=== PATIENT | female | born 2000 | race American Indian/Alaskan Native ===

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

== ENCOUNTER 2019-07-31 23:09 | Emergency (ER) | payer SELFPAY ==
--- NOTE | 2019-08-01 00:21 | Emergency Department Report ---
<LILLIAM PASTRANA - Last Filed: 08/01/19 00:17> ED Psych HPI - General Chief Complaint: Psych Stated Complaint: SI Time Seen by Provider: 07/31/19 23:27 Source: patient, EMS Mode of arrival: Ambulatory - History of Present Illness Initial Comments: 18 yo F presents to ED for mental health evaluation. Pt states her friend called 911 b/c she was concerned that pt was suicidal. Pt states she has been sad that this is the anniversary of her grandparents' . States she was talking to her friend over the phone and told her that she "just wanted to be with them," and then hung up the phone. EMS then arrived at her home. Patient report taking 3 percocets, 2 shots of [place], and a glass of wine. When asked if she is feeling suicidal, pt states "not really." States she wants to escape the feelings she is having. MD Complaint: feels depressed -: This evening Associated Psychiatric Symptoms: depression Improves With: none Worsens With: achohol Context: recent alcohol abuse, significant life stressor Associated Symptoms: denies other symptoms Treatments Prior to Arrival: none - Related Data Home Medications Medication Instructions Recorded Confirmed Last Taken No Known Home Medications [No 08/01/19 08/01/19 Unknown Reported Home Medications] Allergies Allergy/AdvReac Type Severity Reaction Status Date / Time latex Allergy Unknown Verified 07/31/19 23:26 Nuts Allergy Hives Uncoded 04/28/15 23:09 Seafood AdvReac Hives Uncoded 04/28/15 23:09 ED Review of Systems Comment: All other systems reviewed and negative Psychiatric: depression. denies: auditory hallucinations, visual h allucinations, homicidal thoughts ED Past Medical Hx - Past Medical History Previous Medical History?: Yes Hx Asthma: Yes - Social History Smoking Status: Never Smoker - Medications Home Medications: Home Medications Medication Instructions Recorded Confirmed Last Taken Type No Known Home Medications [No 08/01/19 08/01/19 Unknown History Reported Home Medications] ED Physical Exam - General Limitations: No Limitations General appearance: alert, in no apparent distress - Head Head exam: Present: atraumatic, normocephalic - Eye Eye exam: Present: normal appearance, EOMI - ENT ENT exam: Present: mucous membranes moist - Neck Neck exam: Present: normal inspection - Respiratory Respiratory exam: Present: normal lung sounds bilaterally. Absent: respiratory distress - Cardiovascular Cardiovascular Exam: Present: regular rate, normal rhythm - GI/Abdominal GI/Abdominal exam: Absent: distended - Extremities Exam Extremities exam: Present: normal inspection - Neurological Exam Neurological exam: Present: alert, oriented X3, CN II-XII intact. Absent: motor sensory deficit - Psychiatric Psychiatric exam: Present: depressed - Skin Skin exam: Present: warm, dry, intact, normal color ED Medical Decision Making - Differential Diagnosis depression, SI, intoxication ED Disposition Clinical Impression: Depression, Substance abuse Disposition: DC-01 TO HOME OR SELFCARE Condition: Stable Instructions: Depression (ED), Suicide Prevention for Adults (ED) Additional Instructions: Please avoid any further abuse of prescription or any illicit drugs. Do not mix prescription medications with alcohol. Please follow-up with 1 of the outpatient psychiatric referrals that you have been given. Return to the emergency department with any worsening of your symptoms, thoughts of harming your self or others, or with any acute distress. Referrals: PRIMARY CARE, [Primary Care Provider] - 3-5 Days <TRINY GURROLA - Last Filed: 08/01/19 10:31> ED Review of Systems ROS: Stated complaint: SI Other details as noted in HPI ED Course Vital Signs 07/31/19 08/01/19 08/01/19 23:33 01:00 01:09 Temperature 98.7 F Pulse Rate 91 H 65 Respiratory 20 20 20 Rate Blood Pressure 118/80 Blood Pressure 104/73 [Right] O2 Sat by Pulse 100 99 99 Oximetry 08/01/19 08/01/19 08/01/19 02:00 04:00 05:00 Temperature Pulse Rate 73 73 73 Respiratory 18 20 18 Rate Blood Pressure Blood Pressure 105/54 105/50 101/58 [Right] O2 Sat by Pulse 98 100 98 Oximetry 08/01/19 08/01/19 06:00 07:15 Temperature 97.7 F Pulse Rate 79 87 Respiratory 18 16 Rate Blood Pressure Blood Pressure 102/63 102/53 [Right] O2 Sat by Pulse 99 98 Oximetry ED Medical Decision Making - Lab Data Result diagrams: 07/31/19 23:50 07/31/19 23:50 - Medical Decision Making This patient initially came in after mixing Percocet and alcohol and making some type of a statement regarding seeing her grandparents that was taken as concern for suicidal ideations. The patient has been seen by the psychiatric assessment team and she denies any suicidal ideations. She made the statements just in terms of missing them and grieving. She used the substances to numb and the pain but not to harm herself. She will be discharged with outpatient referrals. She has been instructed to return to the emergency department with any worsening of her symptoms, thoughts of harming herself or others, or with any acute distress. Critical care attestation.: If time is entered above; I have spent that time in minutes in the direct care of this critically ill patient, excluding procedure time. ED Disposition Is pt being admited?: No Time of Disposition: 10:29
[2019-08-01 00:40] LABS: Bacteria,Urine 2+ /HPF (Negative); Bilirubin,Urine NEG (Negative); Blood,Urine NEG (Negative); Color,Urine Yellow (Yellow); Mucus,Urine FEW /HPF; Protein,Urine <15 mg/dL mg/dL (Negative); Urobilinogen,Urine < 2.0 mg/dL (<2.0)
[2019-08-01 00:43] LABS: Eosinophils # (Auto) 0.1 K/mm3 (0.0-0.4); Eosinophils % (Auto) 2.6 % (0.0-4.3); Hematocrit 36.3 % (30.3-42.9); Hemoglobin 12.4 gm/dl (10.1-14.3); Lymphocytes # (Auto) 2.3 K/mm3 (1.2-5.4); Lymphocytes % (Auto) 46.5 % (13.4-35.0); Mean Corpuscular HGB Conc 34 % (30-34); Mean Corpuscular Volume 95 fl (79-97); Monocytes # (Auto) 0.5 K/mm3 (0.0-0.8); Monocytes % (Auto) 9.3 % (0.0-7.3); Red Blood Count 3.83 M/mm3 (3.65-5.03); Red Cell Distribution Width 13.8 % (13.2-15.2)
[2019-08-01 00:46] LABS: Amphetamine Screen,Urine PRESUMPTIVE NEGATIVE; Benzodiazepines Screen,Urine PRESUMPTIVE NEGATIVE; Cocaine Screen,Urine PRESUMPTIVE NEGATIVE; Methadone Screen,Urine PRESUMPTIVE NEGATIVE; Opiate Screen,Urine PRESUMPTIVE NEGATIVE
[2019-08-01 00:49] LABS: Platelet Count 332 K/mm3 (140-440)
[2019-08-01 00:50] LABS: BUN/Creatinine Ratio 17; Blood Urea Nitrogen 10 mg/dL (7-17); Calcium 9.2 mg/dL (8.4-10.2); Hemolysis Index 22
[2019-08-01 00:55] LABS: Cannabinoid Screen,Urine PRESUMPTIVE POSITIVE
[2019-08-01 10:40] VITALS: BP 120/65
== END 2019-08-01 10:40 | disposition home or self-care (01) ==
LOC: ED 23:09
DX: F32.89 Other specified depressive episodes (principal); J45.909 Unspecified asthma, uncomplicated; Z79.899 Other long term (current) drug therapy
CPT/HCPCS: 36415; 80048; 80307; 80320; 81001; 84703; 85025; G0480

== ENCOUNTER 2021-11-08 19:29 | Emergency (ER) | payer MEDICAID ==
[2021-11-08 20:40] VITALS: BP 140/83
== END 2021-11-09 01:36 | disposition left against medical advice (07) ==
LOC: ED 19:29
DX: M54.9 Dorsalgia, unspecified (principal); Z53.21 Procedure and treatment not carried out due to patient leaving prior to being seen by health care provider